=== PATIENT | male | born 1970 | race Caucasian/White ===

== ENCOUNTER 2020-02-15 07:39 | Observation (INO) ==
[2020-02-15 08:08] LABS: Bilirubin,Urine Large (Negative); Blood,Urine Large (Negative); Clarity,Urine Turbid (Clear); Color,Urine Red (Yellow); Glucose,Urine (UA) 100 mg/dL (Normal); Ketones,Urine 15 mg/dL (Negative); Leukocyte Esterase,Urine Moderate (Negative); Nitrite,Urine Positive (Negative); PH,Urine 5.5 pH Units (5.0-8.0); Protein,Urine >=300 mg/dL (Neg-Trace); Specific Gravity,Urine > 1.030 (1.010-1.025); Urobilinogen,Urine Normal (Normal)
[2020-02-15 08:12] LABS: Basophils % 0.5 %; Eosinophils # 0.1 K/mcL (0.0-0.6); Eosinophils % 1.8 %; Hematocrit 45.1 % (37.5-50.1); Hemoglobin 14.8 g/dL (12.9-16.9); Immature Granulocytes % 0.3 % (0-4); Lymphocytes # 1.2 K/mcL (0.6-4.6); Lymphocytes % 19.5 %; Mean Corpuscular HGB Conc 32.8 g/dL (31.6-35.5); Mean Corpuscular Hemoglobin 28.5 pg (28.0-33.3); Mean Corpuscular Volume 86.7 fL (83.0-100.0); Mean Platelet Volume 12.2 fL (9.4-12.4); Monocytes # 0.4 K/mcL (0.0-1.3); Monocytes % 6.2 %; Neutrophils # 4.5 K/mcL (1.6-8.9); Platelet Count 170 K/mcL (140-400); Red Cell Distribution Width 11.8 % (11.5-14.5); Segmented Neutrophils % 71.7 %; White Blood Count 6.3 K/mcL (4.3-11.1)
[2020-02-15] MEDS ORDERED: Ondansetron 4 MG/2 ML VIAL IVP ONE ×2 (08:19→08:20)
[2020-02-15] MEDS ORDERED: Ketorolac 30 MG/ML VIAL IVP ONE (08:20)
[2020-02-15] MEDS ORDERED: 0.9 % Sodium Chloride 1,000 ML IVC ONE (08:20)
[2020-02-15 08:27] LABS: BUN/Creatinine Ratio 19 (6-26); Blood Urea Nitrogen 16 mg/dL (6-20); Calcium 9.4 mg/dL (8.6-10.3); Carbon Dioxide 27 mEq/L (23-29); Chloride 106 mEq/L (98-107); Glucose 219 mg/dL (70-105); Osmolality,Calculated 296 (280-300); Potassium 3.7 mEq/L (3.5-5.1); Sodium 139 mEq/L (136-145); eGFR For African Americans > 60 (> 60); eGFR For Non-African Americans > 60 (> 60)
[2020-02-15] MEDS ORDERED: cefTRIAXone 1,000 MG in Water for inj. (sterile) 10 ML IVP ONE (09:18)
[2020-02-15] MEDS ORDERED: Ondansetron 4 MG/2 ML VIAL IVP PRN (10:29)
[2020-02-15] MEDS: 0.9 % Sodium Chloride 1,000 ML IVC SCH (13:05)
[2020-02-15] MEDS: Insulin LISPRO 300 UNITS/3 ML VIAL SQ SCH ×2 (13:06→17:12)
[2020-02-15] MEDS: Ketorolac 30 MG/ML VIAL IVP PRN ×2 (13:30→20:29)
[2020-02-15] MEDS ORDERED: Insulin LISPRO 300 UNITS/3 ML VIAL SQ SCH (21:00)
[2020-02-16] MEDS: 0.9 % Sodium Chloride 1,000 ML IVC SCH (04:32)
[2020-02-16 04:49] LABS: Basophils % 0.3 %; Eosinophils # 0.1 K/mcL (0.0-0.6); Eosinophils % 1.3 %; Hematocrit 40.1 % (37.5-50.1); Hemoglobin 13.7 g/dL (12.9-16.9); Immature Granulocytes % 0.3 % (0-4); Lymphocytes # 1.5 K/mcL (0.6-4.6); Lymphocytes % 19.2 %; Mean Corpuscular HGB Conc 34.2 g/dL (31.6-35.5); Mean Corpuscular Hemoglobin 29.4 pg (28.0-33.3); Mean Corpuscular Volume 86.1 fL (83.0-100.0); Mean Platelet Volume 12.4 fL (9.4-12.4); Monocytes # 0.4 K/mcL (0.0-1.3); Monocytes % 5.3 %; Neutrophils # 5.9 K/mcL (1.6-8.9); Platelet Count 157 K/mcL (140-400); Red Blood Count 4.66 M/mcL (4.19-5.50); Red Cell Distribution Width 11.8 % (11.5-14.5); Segmented Neutrophils % 73.6 %
[2020-02-16 05:07] LABS: BUN/Creatinine Ratio 17 (6-26); Blood Urea Nitrogen 11 mg/dL (6-20); Calcium 8.6 mg/dL (8.6-10.3); Carbon Dioxide 25 mEq/L (23-29); Chloride 104 mEq/L (98-107); Glucose 135 mg/dL (70-105); Osmolality,Calculated 283 (280-300); Potassium 3.5 mEq/L (3.5-5.1); Sodium 136 mEq/L (136-145); eGFR For African Americans > 60 (> 60); eGFR For Non-African Americans > 60 (> 60)
[2020-02-16] MEDS: Insulin LISPRO 300 UNITS/3 ML VIAL SQ SCH (07:58)
[2020-02-16] MEDS ORDERED: Ondansetron 4 MG/2 ML VIAL ONE (09:09)
[2020-02-16] MEDS ORDERED: *HR* FentaNYL (PF) 100 MCG/2 ML VIAL ONE (09:09)
[2020-02-16] MEDS ORDERED: *HR* Propofol 200 MG/20 ML VIAL IVP ONE (09:09)
[2020-02-16] MEDS ORDERED: Lidocaine -MPF 2% 2 ML VIAL ONE (09:09)
[2020-02-16] MEDS ORDERED: Dexamethasone 4 MG/ML VIAL ONE (09:09)
[2020-02-16] MEDS ORDERED: *HR* Midazolam HCl 2 MG/2 ML VIAL ONE (09:09)
[2020-02-16] MEDS ORDERED: Ondansetron 4 MG/2 ML VIAL IVP ONE (09:11)
[2020-02-16] MEDS ORDERED: *HR* HYDROmorphone PF 0.5 MG/0.5 ML SYRINGE IVP PRN (09:11)
[2020-02-16] MEDS ORDERED: *HR* OxyCODONE Immed Rel 5 MG TABLET PO PRN (09:11)
[2020-02-16] MEDS ORDERED: Isovue-300 50ML VIAL ONE (09:24)
[2020-02-16] MEDS ORDERED: *HR* Succinylcholine 200 MG/10 ML VIAL IVP ONE (09:48)
[2020-02-16] MEDS ORDERED: Ketorolac 30 MG/ML VIAL ONE (09:53)
[2020-02-16] MEDS ORDERED: cefTRIAXone 2,000 MG in Water for inj. (sterile) 20 ML IVP SCH (11:00)
[2020-02-16] MEDS ORDERED: Ketorolac 30 MG/ML VIAL IVP PRN (11:37)
[2020-02-16] MEDS ORDERED: Ondansetron 4 MG/2 ML VIAL IVP PRN (11:37)
[2020-02-16] MEDS ORDERED: 0.9 % Sodium Chloride 1,000 ML IVC SCH (11:37)
[2020-02-16 11:42] VITALS: BP 173/92
[2020-02-16] MEDS ORDERED: Insulin LISPRO 300 UNITS/3 ML VIAL SQ SCH ×2 (16:30→21:00)
[2020-02-17 08:17] LABS: Estimated Average Glucose 229 mg/dl
[2020-02-17] MEDS ORDERED: cefTRIAXone 2,000 MG in Water for inj. (sterile) 20 ML IVP SCH (11:00)
== END 2020-02-16 13:05 | disposition home or self-care (01) ==
LOC: EMEROOARM 07:39 → 3ANU 07:39 → SUATTDRO 10:16 → 3ANU 10:43
PROVIDERS: ADMIT Internal Medicine; ATTEND Internal Medicine